=== PATIENT | male | born 1995 | race Caucasian/White ===

== ENCOUNTER 2024-01-19 12:44 | Outpatient (RCR) | payer BC, SELFPAY ==
[2024-01-19 12:58] LABS: INR Fingerstick 2.4; Prothrombin Time Fingerstick 24.7 SEC (11.7-14.9)
== END 2024-01-19 18:00 | disposition home or self-care (01) ==
LOC: MTLAB 12:44
PROVIDERS: PCP Family Medicine; Referring Provider Nurse Practitioner; Visit Provider Nurse Practitioner
DX: Z95.2 Presence of prosthetic heart valve (principal)
CPT/HCPCS: 36416; 85610

== ENCOUNTER → 2024-07-19 | Outpatient (CLI) | payer BC, SELFPAY ==
[2024-07-19 16:13] LABS: Syphilis Antibodies Reactive
== END | disposition home or self-care (01) ==
PROVIDERS: PCP Family Medicine; Referring Provider Physician Assistant Medical; Visit Provider Physician Assistant Medical
DX: L08.9 Local infection of the skin and subcutaneous tissue, unspecified (principal)
CPT/HCPCS: 36415; 86780